=== PATIENT | female | born 1970 | race Asian ===

== ENCOUNTER 2019-10-30 09:17 | Outpatient (CLI) | payer OTHER | END 2019-10-30 10:00 | disposition home or self-care (01) | LOC: RAD 09:17 | DX: M72.2 Plantar fascial fibromatosis (principal) ==

== ENCOUNTER 2020-11-23 14:58 | Outpatient (CLI) | payer OTHER | END 2020-11-23 18:50 | disposition home or self-care (01) | LOC: RAD 14:58 | DX: S99.822A Other specified injuries of left foot, initial encounter (principal); S99.922A Unspecified injury of left foot, initial encounter ==